=== PATIENT | male | born 1960 ===

== ENCOUNTER 2018-11-22 11:28 | Emergency (ER) | payer OTHER ==
[~2018-11-22] VITALS: Ht 167.6 cm; Wt 111.1 kg
[2018-11-22] MEDS ORDERED: ATENOLOL25 MG (11:43)
[2018-11-22] MEDS ORDERED: AVALIDE 300-121 EACH (11:43)
[2018-11-22] MEDS ORDERED: INTESTINEX680 M1 PO (13:43)
[2018-11-22] MEDS ORDERED: AMOX-CLAV 875-1 EACH PO (13:43)
== END 2018-11-22 13:55 | disposition home or self-care (01) ==
LOC: ER 11:28
DX: S01.521A Laceration with foreign body of lip, initial encounter (principal); W22.8XXA Striking against or struck by other objects, initial encounter; Y93.89 Activity, other specified; Y92.69 Other specified industrial and construction area as the place of occurrence of the external cause; Y99.8 Other external cause status